=== PATIENT | female | born 1935 | race Caucasian/White ===

== ENCOUNTER 2017-10-06 12:25 | Day surgery (SDC) | payer OTHER ==
[2017-10-06] MEDS ORDERED: PROPOFOL 20 ML (14:27)
== END 2017-10-06 15:12 | disposition home or self-care (01) ==
LOC: GIL 12:25
DX: D12.2 Benign neoplasm of ascending colon (principal); D12.3 Benign neoplasm of transverse colon; K64.8 Other hemorrhoids; E03.9 Hypothyroidism, unspecified; I10 Essential (primary) hypertension
CPT/HCPCS: 45380; 88305

== ENCOUNTER 2017-12-15 11:34 | Day surgery (SDC) | payer OTHER ==
[~2017-12-15 11:34] MED LIST: PROPOFOL 200 MG INJ
[2017-12-15] MEDS ORDERED: LIDOCAINE 2% (SDV) 5 ML INJ (15:21)
[2017-12-15] MEDS ORDERED: PROPOFOL 60 ML (15:21)
== END 2017-12-15 17:26 | disposition home or self-care (01) ==
LOC: GIL 11:34
DX: K29.50 Unspecified chronic gastritis without bleeding (principal); I10 Essential (primary) hypertension; E03.9 Hypothyroidism, unspecified
CPT/HCPCS: 43239; 88305; 88313